=== PATIENT | female | born 1985 | race Caucasian/White ===

== ENCOUNTER → 2017-09-04 | Outpatient (CLI) | payer OTHER ==
[2017-09-04 14:14] LABS: BASOPHILS # (AUTO) 0.1 X10^3/uL (0.0-0.1); BASOPHILS % (AUTO) 0.5 % (0.2-1.0); EOSINOPHILS # (AUTO) 0.1 x10^3/uL (0.0-0.2); EOSINOPHILS % (AUTO) 0.5 % (0.9-2.9); HEMATOCRIT 32.5 % (36.0-47.0); HEMOGLOBIN 11.3 g/dL (12.0-16.0); LYMPHOCYTES % (AUTO) 18.1 % (21.0-51.0); MEAN CORPUSCULAR HEMOGLOBIN 29.2 pg (27.0-34.0); MEAN CORPUSCULAR HGB CONC 34.8 g/dL (33.0-35.0); MEAN CORPUSCULAR VOLUME 83.8 fL (80.0-100.0); MEAN PLATELET VOLUME 8.1 fL (7.4-11.0); MONOCYTES # (AUTO) 0.8 x10^3/uL (0.3-0.8); MONOCYTES % (AUTO) 7.2 % (0.0-13.0); NEUTROPHILS # (AUTO) 8.1 x10^3/uL (2.2-4.8); NEUTROPHILS % (AUTO) 73.7 % (42.0-75.0); PLATELET COUNT 216 X10^3/uL (150.0-450.0); RED BLOOD COUNT 3.88 X10^6/uL (3.5-5.4); RED CELL DISTRIBUTION WIDTH 14.6 % (11.6-16.5); WHITE BLOOD COUNT 10.9 X10^3/uL (3.6-10.0)
[2017-09-04 14:16] LABS: BILIRUBIN,URINE NEGATIVE (NEGATIVE); BLOOD/HEMOGLOBIN,URINE NEGATIVE (NEGATIVE); GLUCOSE, URINE NEGATIVE (NEGATIVE); KETONES,URINE NEGATIVE (NEGATIVE); LEUKOCYTE ESTERASE ,URINE 1+ (NEGATIVE); NITRITES,URINE NEGATIVE (NEGATIVE); PROTEIN,URINE NEGATIVE (NEGATIVE); UROBILINOGEN,URINE NORMAL (NORMAL)
[2017-09-04 14:21] LABS: APPEARANCE,URINE CLEAR (CLEAR); COLOR,URINE YELLOW (YELLOW)
[2017-09-04 14:25] LABS: BLOOD UREA NITROGEN 9 mg/dL (7-18); CALCIUM 7.9 mg/dL (8.5-10.1); CARBON DIOXIDE 21.2 mmol/L (21-32); CHLORIDE 103 mmol/L (98-107); COR NA(FOR HYPERGLY) 136 mmol/L (136-145); CREATININE 0.73 mg/dL (0.55-1.02); SODIUM 135 mmol/L (136-145); eGFR BLACK RACES > 60 (>60); eGFR NON BLACK RACES > 60 (>60)
[2017-09-04 15:00] LABS: BACTERIA,URINE TRACE /HPF (NEGATIVE); RBC,URINE 0-2 /HPF (NONE SEEN); SQUAMOUS EPITHELIAL CELL,UR MANY /HPF (NEGATIVE)
[2017-09-04 15:01] LABS: AMORPHOUS SEDIMENT,UR 1+ /HPF (NEGATIVE); RENAL EPITHELIAL CELLS,URINE RARE /HPF (NEGATIVE)
== END ==
LOC: LAB 13:42
PROVIDERS: ATTEND Specialist
DX: Z01.818 Encounter for other preprocedural examination (principal); Z34.83 Encounter for supervision of other normal pregnancy, third trimester
CPT/HCPCS: 36415; 80048; 80307; 81001; 85025; 86592; 86850; 86900; 86901; G0434

== ENCOUNTER 2017-09-05 06:24 | Inpatient (IN) | payer OTHER ==
[~2017-09-05 06:24] MED LIST: D5 1/2 NS 1L W PITOCIN 20 UNITS/L 20 UNITS/1,000 ML BAG IV ONE; D5LR 1L W PITOCIN 10 UNITS/L 10 UNITS/1,000 ML BAG IV ONE; FENTANYL INJ 100 mcg ONE; LR 1000 ML IV 1,000 ML IV ONE; NAROPIN EPIDURAL 0.2% + FENTANYL 90MCG 60 ML EPI ONE; PITOCIN ONE
[2017-09-05] MEDS ORDERED: D5LR 1L W PITOCIN 10 UNITS/L 10 UNITS/1,000 ML BAG IV PRN (06:27)
[2017-09-05] MEDS ORDERED: D5 1/2 NS 1000 ML 1,000 ML IV SCH (06:27)
[2017-09-05] MEDS ORDERED: REGLAN INJ 10 MG VIAL IVP PRN ×4 (06:27→17:41)
[2017-09-05] MEDS ORDERED: PHENERGAN INJ 25 MG IV PRN ×2 (06:27→17:41)
[2017-09-05] MEDS ORDERED: PITOCIN IVP ONE (06:27)
[2017-09-05] MEDS ORDERED: MORPHINE SULFATE INJ 2 MG INJ IVP PRN (06:27)
[2017-09-05] MEDS ORDERED: NUBAIN INJ 200 MG VIAL MULTIDOSE IVP PRN (06:27)
--- NOTE | 2017-09-05 07:05 | DR.OB ---
OB Quick Note - Assessment/Plan Assessment/Plan: L&D 09/05/17 at 7:00am S-No complaint. O-Afebrile, VSS MCL=315 with good LTV, +accel, no decel. CTX=mild,irreg. CVX=2cm/50%/-1/VTX AROM with clear fluid. IUPC and FSE placed. A-IUP at 39 2/7 weeks for induction P-Begin pitocin induction Anticipate .
[2017-09-05] MEDS ORDERED: FENTANYL INJ 100 mcg EPI ONE (10:29)
[2017-09-05] MEDS ORDERED: LR 1000 ML IV 1,000 ML IV ONE ×2 (10:29→16:30)
[2017-09-05] MEDS ORDERED: DIPRIVAN VIAL ONE (10:43)
[2017-09-05] MEDS ORDERED: ZOFRAN INJ 4 MG VIAL ONE ×2 (10:43→17:23)
[2017-09-05] MEDS ORDERED: XYLOCAINE 2 % (PLAIN) ONE (10:43)
[2017-09-05] MEDS ORDERED: XYLOCAINE 1 % (PLAIN) ONE (10:50)
[2017-09-05] MEDS ORDERED: NAROPIN EPIDURAL 0.2% 60 ML with FENTANYL INJ 100 mcg 90 MCG IVP SCH ×2 (11:00)
[2017-09-05] MEDS ORDERED: ANCEF 1 GM IV PREMIX* 1 GM/50 ML BAG IV ONE (11:29)
[2017-09-05] MEDS ORDERED: NS 1000 ML 1,000 ML ONE (12:01)
[2017-09-05] MEDS ORDERED: NS 1000 ML 1,000 ML IV ONE (12:21)
--- NOTE | 2017-09-05 12:30 | DR.OB ---
OB Quick Note - Assessment/Plan Assessment/Plan: L&D 09/05/17 at 12:05pm Pitocin=6mu/min. S-No complaint. s/p epidural. Episode of prolonged late decel x 7 min. that resolved. s/p epidural. O-Afebrile,VSS UIG=401 with good LTV, +accel, mild variables. Occ. late decel--mild. CTX=q 2-4 min., about 45-70mmHg CVX=3cm/50%/-1/VTX A-IUP at 39 2/7 weeks for induction P-Cont. pitocin induction Anticipate
[2017-09-05] MEDS ORDERED: D5 1/2 NS 1000 ML 1,000 ML IV ONE (15:30)
[2017-09-05] MEDS ORDERED: MARCAINE 0.25% INJ ONE (16:17)
[2017-09-05] MEDS ORDERED: NS IRRIGATION 1000 ML 1,000 ML IR ONE (16:41)
[2017-09-05] MEDS ORDERED: DURAMORPH ONE (16:47)
[2017-09-05] MEDS ORDERED: PHENERGAN INJ 25 MG IVP PRN (17:20)
[2017-09-05] MEDS ORDERED: ZOFRAN INJ 4 MG VIAL IVP PRN ×2 (17:20→17:41)
[2017-09-05] MEDS ORDERED: BENADRYL INJ 50 MG VIAL IVP PRN ×2 (17:20→17:41)
[2017-09-05] MEDS ORDERED: REGLAN INJ 10 MG VIAL ONE (17:38)
[2017-09-05] MEDS ORDERED: NARCAN INJ IVP PRN (17:41)
[2017-09-05] MEDS ORDERED: PERCOCET TAB 5/325 MG PO PRN (17:41)
[2017-09-05] MEDS ORDERED: ADACEL TDaP IM ONE ×2 (17:41→22:00)
[2017-09-05] MEDS ORDERED: MYLICON TAB 80 MG CHEW PO PRN (17:41)
[2017-09-05] MEDS ORDERED: TORADOL 30 MG VIAL IVP PRN (17:41)
[2017-09-05] MEDS ORDERED: D5 1/2 NS 1000 ML 1,000 ML with PITOCIN 20 UNITS IV SCH ×2 (18:00)
[2017-09-05] MEDS: ZANTAC PO SCH (21:21)
[2017-09-06 05:59] LABS: HEMATOCRIT 27.6 % (36.0-47.0); HEMOGLOBIN 9.5 g/dL (12.0-16.0)
[2017-09-06] MEDS ORDERED: PERCOCET TAB 5/325 MG PO PRN (07:12)
[2017-09-06] MEDS: ZANTAC PO SCH ×2 (08:25→20:48)
[2017-09-06] MEDS: PRENATAL PLUS PO SCH (08:25)
[2017-09-06] MEDS: COLACE CAP 100 MG PO SCH ×2 (08:25→20:48)
[2017-09-06] MEDS: BACTROBAN OINT TOP SCH ×2 (13:08→22:52)
[2017-09-06] MEDS: MOTRIN TAB 800 MG PO PRN (15:15)
[2017-09-07] MEDS: BACTROBAN OINT TOP SCH (05:06)
[2017-09-07] MEDS: PRENATAL PLUS PO SCH (08:19)
[2017-09-07] MEDS: ZANTAC PO SCH (08:19)
[2017-09-07] MEDS: COLACE CAP 100 MG PO SCH (08:19)
[2017-09-07 11:38] VITALS: BP 104/60
[2017-09-07] MEDS: MOTRIN TAB 800 MG PO PRN (12:18)
== END 2017-09-07 13:30 | disposition home or self-care (01) | DRG 775 ==
LOC: LD 06:24 → MED/SURG 18:12
PROVIDERS: ADMIT Specialist; ATTEND Specialist
PROC: 3E0234Z Introduction of Serum, Toxoid and Vaccine into Muscle, Percutaneous Approach (ICD-10-PCS; 2017-09-05)
PROC: 10D00Z1 Extraction of Products of Conception, Low, Open Approach (ICD-10-PCS; principal; 2017-09-05 16:00)
DX: O77.8 Labor and delivery complicated by other evidence of fetal stress (principal); Z37.0 Single live birth; O61.8 Other failed induction of labor; O62.0 Primary inadequate contractions; Z3A.39 39 weeks gestation of pregnancy; Z23 Encounter for immunization
CPT/HCPCS: 36415; 85014; 85018; A4216; A4222; S0020; S0197; J0690; J2001; J2405; J2590; J2765; J3010; J3490; J7042; J7120

== ENCOUNTER 2020-10-30 15:35 | Inpatient (IN) ==
[2020-10-30 15:45] VITALS: BMI 33.3
[2020-10-30] MEDS ORDERED: NS 1000 ML 1,000 ML IV STA (16:15)
--- NOTE | 2020-10-30 16:15 | DR.GENAD ---
HPI Time Seen Time Seen by Provider: 10/30/20 16:00 PCP Primary Care Physician: BERTRAND HPI Comment HPI Comment: PATIENT WITH A HISTORY OF ENDOMETROSIS, COMPLAINS OF DAILY VAGINAL BLEEDING FOR 2 MONTHS, DENIES ABDOMINAL PAIN, HAS OCCASIONAL WEAKNESS AND DIZZINESS UPON STANDING. HAS BEEN EVALUATED BY 2 SEPARATE [employer]UX SECURITY ADMINISTRATOR OVER THE PAST MONTH WITH RECOMMENDATIONS OF HYSTERECTOMY OR HORMONAL THERAPY. Complaint/Symptoms Chief Complaint Doctors Comments: VAGINAL BLEEDING Chief Complaint:: PT. STATES SHE HAS HAD VAGINAL BLEEDING X 2 MONTHS. BLEEDING INCREASED OVER NIGHT. PT. IS SCHEDULED TO SEE ANNUAL GIVING DIRECTOR IN NOVEMBER. PT. C/O HEADACHE, FATIGUE, PALE TOUNGE AND VITAMIN DEFICIENCY. 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 Past Surgical History: Yes Surgical History: and Thyroidectomy Family History History of Family Medical Conditions: Yes Family Medical History: Diabetes Mellitus and Hypertension Social History Does patient currently use any type of tobacco product: No Have you used tobacco products in the last 12 months: No Type of Tobacco Use: None Does any household member use tobacco: No Alcohol Use: None Do you use any recreational Drugs:: No Lives With: Family Lives Where: Home Travel Risk Coronavirus risk:travel/contact w/high risk person: No Has patient experienced Coronavirus symptoms: No Infectious screening In the last 2 months have you had wt loss of >10#?: NO Have you had fever, night sweats or hemotysis?: No Have you traveled outside the country in the last 6 months?: No Isolation: Standard ROS Review of Systems Constitutional: See HPI and Weakness Eyes: No Symptoms Reported ENTM: No Symptoms Reported Respiratoy: No Symptoms Reported Cardiovascular: No Symptoms Reported Gastrointestinal/Abdominal: No Symptoms Reported Genitourinary: Bleeding (VAGINAL BLEEDING FOR 2 MONTHS) Neurological: No Symptoms Reported Musculoskeletal: No Symptoms Reported Integumentary: No Symptoms Reported Hematologic/Lymphatic: No Symptoms Reported Endocrine: No Symptoms Reported Psychiatric: No Symptoms Reported All Other Systems: Reviewed and Negative PE Vital Signs Vitals: Temperature 98.5 F Pulse Rate [Standing] 104 Pulse Rate [Sitting] 102 Pulse Rate [Lying] 98 Pulse Rate 93 Respiratory Rate 18 Blood Pressure [Left Arm] 106/64 Blood Pressure [Standing] 115/59 Blood Pressure [Sitting] 119/63 Blood Pressure [Lying] 120/64 Blood Pressure 102/56 O2 Sat by Pulse Oximetry 100 General Limitations: Physical Limitation General Appearance: Alert and In No Apparent Distress Head Head Exam: Normal Inspection, Atraumatic and Normocephalic Eyes Eye exam: Normal Appearance, PERRL and EOMI ENT ENT Exam: Normal Exam, Normal Oropharynx and Normal External Ear Exam External Ear Exam: Normal External Inspection TM/Canal Exam: Bilateral: Normal Throat Exam: Normal Inspection Neck Neck Exam: Normal Inspection, Full ROM and Trachea Midline Chest Chest Inspection: Normal Inspection and Symmetric Chest Wall Rise Respiratory Respiratory Exam: Bilateral: Clear to Auscultation Cardiovascular Cardiovascular Exam: Normal Rhythm, Tachycardia and Normal Heart Sounds Abdominal Exam Abdominal Exam: Normal Inspection, Normal Bowel Sounds and Soft Abdominal Tenderness: Other (NO ABDOMINAL TENDERNESS) Extremities Extremities Exam: Normal Inspection and Full ROM Back Back Exam: Normal Inspection and Full ROM Neurologic Neurological Exam: Alert, Oriented X3 and CN II-XII Intact Psychiatric Psychiatric Exam: Normal Affect and Normal Mood Skin Skin Exam: Warm and Dry MDM Differential Diagnosis Differential Diagnosis: DYSFUNCTIONAL UTERINE BLEEDING, FIBROID TUMORS COURSE Treatment Treatment: IV NORMAL SALINE 500ML/HR, PATIENT TYPED AND CROSSED FOR 4 UNITS PRBC, TRANSFUSE 2 UNITS WHEN AVAILABLE Consultation Call Returned: 17:26 Consultation Comments: DISCUSSED FINDINGS WITH DR THURSTON FOR ADMIT INPATIENT ROR Labs Reviewed Laboratory Results Reviewed?: Yes Result Diagrams: 10/30/20 16:29 10/30/20 16:29 Laboratory: WBC 6.4 X10^3/uL (3.6-10.0) 10/30/20 16:29 RBC 2.23 X10^6/uL (3.5-5.4) L 10/30/20 16:29 Hgb 5.3 g/dL (12.0-16.0) L* 10/30/20 16:29 Hct 16.6 % (36.0-47.0) L* 10/30/20 16:29 MCV 74.3 fL (80.0-100.0) L 10/30/20 16:29 MCH 23.9 pg (27.0-34.0) L 10/30/20 16: MCHC 32.1 g/dL (33.0-35.0) L 10/30/20 16: RDW 17.4 % (11.6-16.5) H 10/30/20 16: Plt Count 341 X10^3/uL (150.0-450.0) 10/30/20 16: Plt Count Comment Adequate (ADEQUATE) 10/30/20 16: MPV 6.7 fL (7.4-11.0) L 10/30/20 16: Neut % (Auto) 62.7 % (42.0-75.0) 10/30/20 16: Lymph % (Auto) 25.5 % (21.0-51.0) 10/30/20 16: [place] % (Auto) 8.0 % (0.0-13.0) 10/30/20 16: Eos % (Auto) 3.1 % (0.9-2.9) H 10/30/20 16: Baso % (Auto) 0.7 % (0.2-1.0) 10/30/20 16: Neut # (Auto) 4.0 x10^3/uL (2.2-4.8) 10/30/20 16: Lymph # (Auto) 1.6 X10^3/uL (1.3-2.9) 10/30/20 16:29 [place] # (Auto) 0.5 x10^3/uL (0.3-0.8) 10/30/20 16: Eos # (Auto) 0.2 x10^3/uL (0.0-0.2) 10/30/20 16: Baso # (Auto) 0.0 X10^3/uL (0.0-0.1) 10/30/20 16: Absolute Nucleated RBC 0.2 /100WBC 10/30/20 16:29 Plt Morphology Comment Normal (NORMAL) 10/30/20 16: RBC Morphology Abnormal (NORMAL) A 10/30/20 16:29 Polychromasia 2+ 10/30/20 16:29 Anisocytosis 2+ A 10/30/20 16:29 PT 14.1 SECONDS (11.8-14.3) 10/30/20 16:29 INR Target Range - 10/30/20 16:29 INR 1.14 (0.8-1.3) 10/30/20 16:29 Sodium 144 mmol/L (136-145) 10/30/20 16:29 Corrected Sodium 144 mmol/L (136-145) 10/30/20 16:29 Potassium 4.0 mmol/L (3.5-5.1) 10/30/20 16:29 Chloride 108 mmol/L (98-107) H 10/30/20 16:29 Carbon Dioxide 25.1 mmol/L (21-32) 10/30/20 16:29 BUN 9 mg/dL (7-18) 10/30/20 16:29 Creatinine 0.74 mg/dL (0.55-1.02) 10/30/20 16:29 Est GFR (MDRD) Af Amer > 60 (>60) 10/30/20 16:29 Est GFR (MDRD) Non-Af > 60 (>60) 10/30/20 16:29 Glucose 119 mg/dL (65-99) H 10/30/20 16:29 Calcium 8.3 mg/dL (8.5-10.1) L 10/30/20 16:29 Corrected Calcium TNP 10/30/20 16:29 Magnesium 1.7 mg/dL (1.7-2.9) 10/30/20 16:29 Total Bilirubin 0.20 mg/dL (0.2-1.0) 10/30/20 16:29 AST 13 Units/L (15-37) L 10/30/20 16:29 ALT 19 Units/L (12-78) 10/30/20 16:29 Alkaline Phosphatase 48 Units/L (46-116) 10/30/20 16:29 Total Protein 6.7 g/dL (6.4-8.2) 10/30/20 16:29 Albumin 3.5 g/dL (3.4-5.0) 10/30/20 16:29 Globulin 3.2 g/dL (2.5-4.5) 10/30/20 16:29 Albumin/Globulin Ratio 1.1 Ratio (1.1-2.1) 10/30/20 16:29 HCG, Qual Negative <10 mIU/mL 10/30/20 16:29 Specimen Type Clean catch urine 10/30/20 16: Urine Color Yellow (YELLOW) 10/30/20 16: Urine Appearance Cloudy (CLEAR) 10/30/20 16: Urine pH 8.0 (5.0 - 8.0) 10/30/20 16:29 Ur Specific [place] 1.020 (1.000-1.030) 10/30/20 16: Urine Protein Negative (NEGATIVE) 10/30/20 16: Urine Glucose (UA) Negative (NEGATIVE) 10/30/20 16: Urine Ketones Negative (NEGATIVE) 10/30/20 16: Urine Occult Blood 4+ (NEGATIVE) 10/30/20 16: Urine Nitrite Negative (NEGATIVE) 10/30/20 16: Urine Bilirubin Negative (NEGATIVE) 10/30/20 16: Urine Urobilinogen Normal (NORMAL) 10/30/20 16:29 Ur Leukocyte Esterase Negative (NEGATIVE) 10/30/20 16: Urine RBC 10-20 /HPF (0-3) A 10/30/20 16:29 Urine WBC 0-2 /HPF (0-5) 10/30/20 16:29 Ur Squamous Epith Cells Few /HPF (NEGATIVE) 10/30/20 16: Amorphous Sediment 2+ /HPF (NEGATIVE) 10/30/20 16: Urine Bacteria Trace /HPF (NEGATIVE) 10/30/20 16: Urine Mucus Few /HPF (NEGATIVE) 10/30/20 16:29 Ur Culture Indicated? No/not indicated 10/30/20 16: SARS CoV-2 RNA Rapid BRIAN Negative (NEGATIVE) 10/30/20 17:06 EKG Rate: 92 [place]: Normal Rhythm: ST ST: Ant (ANTERIOR SEPTAL LATERAL T-WAVE CHANGES) Opioid Opioid Risk Tool Age (Adria box if 16-45): Yes History of Preadolescent Sexual Abuse: No Total: 1 Total Score Risk Category: Low Risk Copyright: Jaswinder FULLER predicting aberrant behaviors Diagnosis Discharge Problem: Abnormal vaginal bleeding, Symptomatic anemia
[2020-10-30] MEDS ORDERED: NS 1000 ML 1,000 ML ONE ×2 (16:23→19:18)
[2020-10-30 16:26] LABS: BILIRUBIN,URINE NEGATIVE (NEGATIVE); BLOOD/HEMOGLOBIN,URINE 4+ (NEGATIVE); GLUCOSE, URINE NEGATIVE (NEGATIVE); KETONES,URINE NEGATIVE (NEGATIVE); LEUKOCYTE ESTERASE ,URINE NEGATIVE (NEGATIVE); NITRITES,URINE NEGATIVE (NEGATIVE); PROTEIN,URINE NEGATIVE (NEGATIVE); UROBILINOGEN,URINE NORMAL (NORMAL)
[2020-10-30 16:36] LABS: APPEARANCE,URINE CLOUDY (CLEAR); COLOR,URINE YELLOW (YELLOW)
[2020-10-30 16:37] LABS: AMORPHOUS SEDIMENT,UR 2+ /HPF (NEGATIVE); BACTERIA,URINE TRACE /HPF (NEGATIVE); BASOPHILS % (AUTO) 0.7 % (0.2-1.0); EOSINOPHILS # (AUTO) 0.2 x10^3/uL (0.0-0.2); EOSINOPHILS % (AUTO) 3.1 % (0.9-2.9); LYMPHOCYTES # (AUTO) 1.6 X10^3/uL (1.3-2.9); LYMPHOCYTES % (AUTO) 25.5 % (21.0-51.0); MEAN CORPUSCULAR HEMOGLOBIN 23.9 pg (27.0-34.0); MEAN CORPUSCULAR HGB CONC 32.1 g/dL (33.0-35.0); MEAN CORPUSCULAR VOLUME 74.3 fL (80.0-100.0); MEAN PLATELET VOLUME 6.7 fL (7.4-11.0); MONOCYTES # (AUTO) 0.5 x10^3/uL (0.3-0.8); MUCUS,URINE FEW /HPF (NEGATIVE); NEUTROPHILS % (AUTO) 62.7 % (42.0-75.0); PLATELET COUNT 341 X10^3/uL (150.0-450.0); RED BLOOD COUNT 2.23 X10^6/uL (3.5-5.4); RED CELL DISTRIBUTION WIDTH 17.4 % (11.6-16.5); SQUAMOUS EPITHELIAL CELL,UR FEW /HPF (NEGATIVE); WHITE BLOOD COUNT 6.4 X10^3/uL (3.6-10.0)
[2020-10-30 16:45] LABS: HEMATOCRIT 16.6 % (36.0-47.0); HEMOGLOBIN 5.3 g/dL (12.0-16.0)
[2020-10-30 16:49] LABS: ALANINE AMINOTRANSFERASE 19 Units/L (12-78); ALBUMIN 3.5 g/dL (3.4-5.0); ALKALINE PHOSPHATASE 48 Units/L (46-116); ASPARTATE AMINO TRANSFERASE 13 Units/L (15-37); BLOOD UREA NITROGEN 9 mg/dL (7-18); CALCIUM 8.3 mg/dL (8.5-10.1); CARBON DIOXIDE 25.1 mmol/L (21-32); CHLORIDE 108 mmol/L (98-107); COR NA(FOR HYPERGLY) 144 mmol/L (136-145); CREATININE 0.74 mg/dL (0.55-1.02); MAGNESIUM 1.7 mg/dL (1.7-2.9); SODIUM 144 mmol/L (136-145); TOTAL PROTEIN 6.7 g/dL (6.4-8.2); eGFR NON BLACK RACES > 60 (>60)
[2020-10-30 16:55] LABS: SERUM PREGNANCY TEST, QUAL NEGATIVE <10 mIU/mL
[2020-10-30 17:00] LABS: ANISOCYTOSIS 2+; PLATELET MORPHOLOGY COMMENT NORMAL (NORMAL); POLYCHROMASIA 2+
[2020-10-30] MEDS ORDERED: ZOFRAN INJ 4 MG VIAL IVP PRN (17:48)
[2020-10-30] MEDS ORDERED: TYLENOL 325 MG TAB PO PRN (17:48)
[2020-10-30] MEDS: NS 1000 ML 1,000 ML IV SCH (19:31)
[2020-10-30] MEDS ORDERED: BENADRYL INJ 50 MG VIAL IVP STA (20:32)
[2020-10-30] MEDS ORDERED: NS 250 ML IV 250 ML IV ONE (20:56)
[2020-10-31] MEDS ORDERED: NS 250 ML IV 250 ML IV ONE (02:53)
[2020-10-31 07:08] LABS: BASOPHILS % (AUTO) 0.7 % (0.2-1.0); EOSINOPHILS # (AUTO) 0.3 x10^3/uL (0.0-0.2); EOSINOPHILS % (AUTO) 4.7 % (0.9-2.9); HEMATOCRIT 25.4 % (36.0-47.0); HEMOGLOBIN 8.3 g/dL (12.0-16.0); LYMPHOCYTES # (AUTO) 1.7 X10^3/uL (1.3-2.9); LYMPHOCYTES % (AUTO) 29.2 % (21.0-51.0); MEAN CORPUSCULAR HEMOGLOBIN 25.9 pg (27.0-34.0); MEAN CORPUSCULAR HGB CONC 32.6 g/dL (33.0-35.0); MEAN CORPUSCULAR VOLUME 79.4 fL (80.0-100.0); MONOCYTES # (AUTO) 0.5 x10^3/uL (0.3-0.8); MONOCYTES % (AUTO) 9.6 % (0.0-13.0); NEUTROPHILS # (AUTO) 3.2 x10^3/uL (2.2-4.8); NEUTROPHILS % (AUTO) 55.8 % (42.0-75.0); PLATELET COUNT 279 X10^3/uL (150.0-450.0); RED BLOOD COUNT 3.19 X10^6/uL (3.5-5.4); RED CELL DISTRIBUTION WIDTH 18.6 % (11.6-16.5); WHITE BLOOD COUNT 5.7 X10^3/uL (3.6-10.0)
[2020-10-31 07:20] LABS: ALANINE AMINOTRANSFERASE 15 Units/L (12-78); ALBUMIN 2.9 g/dL (3.4-5.0); ALKALINE PHOSPHATASE 39 Units/L (46-116); ASPARTATE AMINO TRANSFERASE 10 Units/L (15-37); BLOOD UREA NITROGEN 11 mg/dL (7-18); CALCIUM 7.7 mg/dL (8.5-10.1); CARBON DIOXIDE 24.8 mmol/L (21-32); CHLORIDE 113 mmol/L (98-107); COR CA(FOR HYPOALB) 8.6 mg/dL (8.5-10.1); CREATININE 0.74 mg/dL (0.55-1.02); SODIUM 146 mmol/L (136-145); TOTAL PROTEIN 5.5 g/dL (6.4-8.2); eGFR NON BLACK RACES > 60 (>60)
[2020-10-31] MEDS ORDERED: SYNTHROID 137 mcg TAB PO SCH (09:00)
--- NOTE | 2020-10-31 12:46 | DR.SSS ---
SHORT STAY SUMMARY Admission Date Date of Admission: 10/30/20 Discharge Date Discharge Date: 10/31/20 Admission Diagnoses Admission Diagnoses: Symptomatic anemia Discharge Diagnoses Discharge Diagnoses: Symptomatic anemia Dysfunctional uterine bleeding Endometriosis Chief Complaint Chief Complaint: Dizziness Lightheaded History of Present Illness History of Present Illness: Pt is a 35 year old female presenting with worsening fatigue, dizziness, and feeling lightheaded for the past week. She reports a history of heavy menstrual bleeding and for the past week has had large amounts of bleeding with clots. She has seen [facility] CALL in the past and was recommended she have hormonal treatment or hysterectomy. Past Surgical History Surgical History: and Thyroidectomy Allergies Allergies Allergy/AdvReac Type Severity Reaction Status Date / Time No Known Drug Allergies Allergy Verified 10/30/20 15:45 Medications Home Medications: No Known Drug Allergies Allergy (Verified 10/30/20 15:45) CONTINUE taking the following medications levothyroxine 137 mcg PO DAILY 10/30/20 [History] Family History Family Medical History: Diabetes Mellitus and Hypertension Social History Does patient currently use any type of tobacco product: No Have you used tobacco products in the last 12 months: No Type of Tobacco Use: None Does any household member use tobacco: No Alcohol Use: Rarely Drug Use: None Review of Systems Constitutional: Weakness; denies Fever and Chills Eyes: No Symptoms Reported ENT: No Symptoms Reported Respiratory: No Symptoms Reported Cardiovascular: No Symptoms Reported Gastrointestinal: No Symptoms Reported Genitourinary: No Symptoms Reported Musculoskeletal: No Symptoms Reported Skin: No Symptoms Reported Neurological: No Symptoms Reported Physical Exam Vital Signs: Last Vital Signs Temp 98.2 F 10/31/20 12:00 Pulse 72 10/31/20 12:00 Resp 18 10/31/20 12:00 BP 114/75 10/31/20 12:00 Pulse Ox 100 10/31/20 12:00 Oriented: Normal Eyes: Normal Ear: Normal Nose: Normal Throat: Normal Respiratory: Clear Throughout Cardiovascular: Normal : Normal Auscultation: Bowel Sounds: Normal Palpation: Normal Tenderness: Normal Skin: Normal Musculoskeletal: Normal Psychiatric: Normal Mood Description: Calm Speech Pattern: Clear Labs Labs: Laboratory Last Values WBC 5.7 X10^3/uL (3.6-10.0) 10/31/20 06:43 RBC 3.19 X10^6/uL (3.5-5.4) L 10/31/20 06:43 Hgb 8.3 g/dL (12.0-16.0) L D 10/31/20 06:43 Hct 25.4 % (36.0-47.0) L 10/31/20 06:43 MCV 79.4 fL (80.0-100.0) L 10/31/20 06:43 MCH 25.9 pg (27.0-34.0) L 10/31/20 06:43 MCHC 32.6 g/dL (33.0-35.0) L 10/31/20 06:43 RDW 18.6 % (11.6-16.5) H 10/31/20 06:43 Plt Count 279 X10^3/uL (150.0-450.0) 10/31/20 06:43 Plt Count Comment Adequate (ADEQUATE) 10/30/20 16:29 MPV 7.0 fL (7.4-11.0) L 10/31/20 06:43 Neut % (Auto) 55.8 % (42.0-75.0) 10/31/20 06:43 Lymph % (Auto) 29.2 % (21.0-51.0) 10/31/20 06:43 [place] % (Auto) 9.6 % (0.0-13.0) 10/31/20 06:43 Eos % (Auto) 4.7 % (0.9-2.9) H 10/31/20 06:43 Baso % (Auto) 0.7 % (0.2-1.0) 10/31/20 06:43 Neut # (Auto) 3.2 x10^3/uL (2.2-4.8) 10/31/20 06:43 Lymph # (Auto) 1.7 X10^3/uL (1.3-2.9) 10/31/20 06:43 [place] # (Auto) 0.5 x10^3/uL (0.3-0.8) 10/31/20 06:43 Eos # (Auto) 0.3 x10^3/uL (0.0-0.2) H 10/31/20 06:43 Baso # (Auto) 0.0 X10^3/uL (0.0-0.1) 10/31/20 06:43 Absolute Nucleated RBC 0.2 /100WBC 10/31/20 06:43 Plt Morphology Comment Normal (NORMAL) 10/30/20 16:29 RBC Morphology Abnormal (NORMAL) A 10/30/20 16:29 Polychromasia 2+ 10/30/20 16:29 Anisocytosis 2+ A 10/30/20 16:29 PT 14.1 SECONDS (11.8-14.3) 10/30/20 16:29 INR Target Range - 10/30/20 16:29 INR 1.14 (0.8-1.3) 10/30/20 16:29 Sodium 146 mmol/L (136-145) H 10/31/20 06:43 Corrected Sodium TNP 10/31/20 06:43 Potassium 4.1 mmol/L (3.5-5.1) 10/31/20 06:43 Chloride 113 mmol/L (98-107) H 10/31/20 06:43 Carbon Dioxide 24.8 mmol/L (21-32) 10/31/20 06:43 BUN 11 mg/dL (7-18) 10/31/20 06:43 Creatinine 0.74 mg/dL (0.55-1.02) 10/31/20 06:43 Est GFR (MDRD) Af Amer > 60 (>60) 10/31/20 06:43 Est GFR (MDRD) Non-Af > 60 (>60) 10/31/20 06:43 Glucose 95 mg/dL (65-99) 10/31/20 06:43 Calcium 7.7 mg/dL (8.5-10.1) L 10/31/20 06:43 Corrected Calcium 8.6 mg/dL (8.5-10.1) 10/31/20 06:43 Magnesium 1.7 mg/dL (1.7-2.9) 10/30/20 16:29 Total Bilirubin 0.80 mg/dL (0.2-1.0) 10/31/20 06:43 AST 10 Units/L (15-37) L 10/31/20 06:43 ALT 15 Units/L (12-78) 10/31/20 06:43 Alkaline Phosphatase 39 Units/L (46-116) L 10/31/20 06:43 Total Protein 5.5 g/dL (6.4-8.2) L 10/31/20 06:43 Albumin 2.9 g/dL (3.4-5.0) L 10/31/20 06:43 Globulin 2.6 g/dL (2.5-4.5) 10/31/20 06:43 Albumin/Globulin Ratio 1.1 Ratio (1.1-2.1) 10/31/20 06:43 HCG, Qual Negative <10 mIU/mL 10/30/20 16:29 Specimen Type Clean catch urine 10/30/20 16:29 Urine Color Yellow (YELLOW) 10/30/20 16: Urine Appearance Cloudy (CLEAR) 10/30/20 16: Urine pH 8.0 (5.0 - 8.0) 10/30/20 16: Ur Specific [place] 1.020 (1.000-1.030) 10/30/20 16:29 Urine Protein Negative (NEGATIVE) 10/30/20 16:29 Urine Glucose (UA) Negative (NEGATIVE) 10/30/20 16: Urine Ketones Negative (NEGATIVE) 10/30/20 16:29 Urine Occult Blood 4+ (NEGATIVE) 10/30/20 16:29 Urine Nitrite Negative (NEGATIVE) 10/30/20 16: Urine Bilirubin Negative (NEGATIVE) 10/30/20 16:29 Urine Urobilinogen Normal (NORMAL) 10/30/20 16:29 Ur Leukocyte Esterase Negative (NEGATIVE) 10/30/20 16:29 Urine RBC 10-20 /HPF (0-3) A 10/30/20 16:29 Urine WBC 0-2 /HPF (0-5) 10/30/20 16:29 Ur Squamous Epith Cells Few /HPF (NEGATIVE) 10/30/20 16:29 Amorphous Sediment 2+ /HPF (NEGATIVE) 10/30/20 16:29 Urine Bacteria Trace /HPF (NEGATIVE) 10/30/20 16:29 Urine Mucus Few /HPF (NEGATIVE) 10/30/20 16:29 Ur Culture Indicated? No/not indicated 10/30/20 16:29 SARS CoV-2 RNA Rapid BRIAN Negative (NEGATIVE) 10/30/20 17:06 Blood Type AB POSITIVE 10/30/20 16:57 Antibody Screen Negative 10/30/20 16:57 Crossmatch See Detail 10/30/20 16:57 Assessment/Plan (1) Abnormal vaginal bleeding: (2) Symptomatic anemia: Hospital Course Hospital Course: Pt is a 35 year old female past medical history of endometriosis presenting with worsening fatigue, dizziness, and feeling lightheaded for the past week. She reports a history of heavy menstrual bleeding, including for the past month, and for the past week has had large amounts of bleeding with clots. She has seen [facility] CALL in the past and was recommended she have hormonal treatment or hysterectomy, which at the time she declined and is scheduled to see another provider in [place] in November but no definite appointment has been made. She has seen Dr Trotter in the past and was consulted, recommends hormonal treatment or hysterectomy, if patient chooses can follow up with her outpatient. On admission, patient's hemoglobin was found to be 5.3, she was transfused 4 units of packed red blood cells, hemoglobin as responded appropriately and has stabilized. Menstrual bleeding has also slowed down. Pt discharged in stable condition, instructed to follow up with gynecology and pcp in 3-5 days. Discharge Medications Discharge Medications: Home Medication List levothyroxine 137 mcg PO DAILY 10/30/20 [History] Prescriptions: Discharge Disposition Discharge Disposition: Home
[2020-10-31] MEDS ORDERED: NS 100 ML IV 100 ML ONE (16:52)
[2020-10-31] MEDS: NS 1000 ML 1,000 ML IV SCH (18:11)
[2020-10-31 21:11] LABS: HEMATOCRIT 29.2 % (36.0-47.0); HEMOGLOBIN 9.9 g/dL (12.0-16.0)
[2020-10-31 21:22] VITALS: BP 112/70
== END 2020-10-31 21:40 | disposition home or self-care (01) | DRG 761 ==
LOC: ER 15:40 → MED/SURG 17:48
PROVIDERS: ADMIT Internal Medicine; ATTEND Internal Medicine
DX: N93.8 Other specified abnormal uterine and vaginal bleeding; R42 Dizziness and giddiness; Z20.822 Contact with and (suspected) exposure to COVID-19; D64.89 Other specified anemias

== ENCOUNTER 2020-11-28 06:25 | Inpatient (IN) ==
[2020-11-28] MEDS ORDERED: ANCEF 1 GRAM IV PREMIX* 1 G/50 ML BAG IV ONE ×2 (06:36→06:41)
[2020-11-28] MEDS: D5 1/2 NS 1000 ML 1,000 ML IV ONE ×2 (06:36→06:45)
[2020-11-28] MEDS ORDERED: D5 1/2 NS 1000 ML 1,000 ML IV SCH (06:46)
[2020-11-28] MEDS ORDERED: ANCEF VIAL 1 GRAM IVP ONE (06:46)
[2020-11-28] MEDS ORDERED: BETADINE SOLN ONE (06:47)
[2020-11-28 07:03] VITALS: BMI 32.4
[2020-11-28] MEDS ORDERED: FENTANYL INJ 250 mcg ONE (07:11)
[2020-11-28] MEDS ORDERED: BRIDION ONE (07:11)
[2020-11-28] MEDS ORDERED: ProvayBLUE 0.5% ONE (07:12)
[2020-11-28] MEDS ORDERED: NORCURON INJ 10 MG VIAL ONE (07:18)
[2020-11-28] MEDS ORDERED: ZOFRAN INJ 4 MG VIAL ONE (07:18)
[2020-11-28] MEDS ORDERED: DIPRIVAN VIAL ONE (07:18)
[2020-11-28] MEDS ORDERED: QUELICIN (OR ANECTINE) ONE (07:18)
[2020-11-28] MEDS ORDERED: SUPRANE ONE (07:18)
[2020-11-28] MEDS ORDERED: VERSED ONE (07:18)
[2020-11-28] MEDS ORDERED: LR 1000 ML IV 1,000 ML IV ONE (08:46)
[2020-11-28] MEDS ORDERED: BARHEMSYS INJ IVP PRN (09:45)
[2020-11-28] MEDS ORDERED: DILAUDID INJ IVP PRN (09:45)
[2020-11-28] MEDS ORDERED: PHENERGAN INJ 25 MG IM PRN (09:45)
[2020-11-28] MEDS ORDERED: ZOFRAN INJ 4 MG VIAL IVP PRN (09:45)
[2020-11-28] MEDS ORDERED: BENADRYL INJ 50 MG VIAL IVP PRN ×2 (09:45→10:15)
[2020-11-28] MEDS ORDERED: REGLAN INJ 10 MG VIAL IVP PRN (09:45)
[2020-11-28] MEDS ORDERED: MORPHINE SULFATE PCA 30 MG IVP PRN (10:15)
[2020-11-28] MEDS ORDERED: TORADOL 30 MG VIAL IVP PRN (10:15)
[2020-11-28] MEDS: D5 1/2 NS 1000 ML 1,000 ML IV SCH ×2 (11:14→18:52)
[2020-11-28] MEDS: ZOFRAN INJ 4 MG VIAL IVP PRN (13:34)
[2020-11-28 16:16] LABS: HEMATOCRIT 24.5 % (36.0-47.0); HEMOGLOBIN 7.9 g/dL (12.0-16.0)
[2020-11-29] MEDS: ZOFRAN INJ 4 MG VIAL IVP PRN (00:18)
[2020-11-29] MEDS: D5 1/2 NS 1000 ML 1,000 ML IV SCH ×2 (02:49→10:12)
[2020-11-29 05:21] LABS: BASOPHILS % (AUTO) 0.2 % (0.2-1.0); EOSINOPHILS % (AUTO) 0.2 % (0.9-2.9); HEMATOCRIT 24.8 % (36.0-47.0); LYMPHOCYTES # (AUTO) 1.4 X10^3/uL (1.3-2.9); MEAN CORPUSCULAR HEMOGLOBIN 24.7 pg (27.0-34.0); MEAN CORPUSCULAR HGB CONC 32.3 g/dL (33.0-35.0); MEAN CORPUSCULAR VOLUME 76.6 fL (80.0-100.0); MEAN PLATELET VOLUME 7.2 fL (7.4-11.0); MONOCYTES # (AUTO) 0.7 x10^3/uL (0.3-0.8); MONOCYTES % (AUTO) 7.3 % (0.0-13.0); NEUTROPHILS # (AUTO) 7.6 x10^3/uL (2.2-4.8); NEUTROPHILS % (AUTO) 78.3 % (42.0-75.0); PLATELET COUNT 332 X10^3/uL (150.0-450.0); RED BLOOD COUNT 3.24 X10^6/uL (3.5-5.4); RED CELL DISTRIBUTION WIDTH 22.1 % (11.6-16.5); WHITE BLOOD COUNT 9.7 X10^3/uL (3.6-10.0)
[2020-11-29 05:31] LABS: BLOOD UREA NITROGEN 4 mg/dL (7-18); CALCIUM 7.7 mg/dL (8.5-10.1); CARBON DIOXIDE 24.3 mmol/L (21-32); CHLORIDE 108 mmol/L (98-107); COR NA(FOR HYPERGLY) 143 mmol/L (136-145); CREATININE 0.79 mg/dL (0.55-1.02); SODIUM 142 mmol/L (136-145); eGFR NON BLACK RACES > 60 (>60)
[2020-11-29 06:06] LABS: ANISOCYTOSIS 2+; HYPOCHROMASIA SLIGHT; PLATELET MORPHOLOGY COMMENT NORMAL (NORMAL)
[2020-11-29] MEDS ORDERED: SYNTHROID 100 mcg TAB PO SCH (06:30)
[2020-11-29] MEDS ORDERED: MOTRIN TAB 800 MG PO PRN (07:21)
[2020-11-29] MEDS ORDERED: PERCOCET TAB 5/325 MG PO PRN (07:21)
[2020-11-29] MEDS: COLACE CAP 100 MG PO SCH ×2 (10:12→21:26)
[2020-11-29] MEDS: ESTRACE PO SCH (10:12)
[2020-11-29] MEDS ORDERED: SYNTHROID 137 mcg TAB PO ONE (16:05)
[2020-11-29] MEDS ORDERED: SYNTHROID 137 mcg TAB ONE (16:06)
[2020-11-30] MEDS ORDERED: SYNTHROID 137 mcg TAB PO SCH ×2 (06:30)
[2020-11-30] MEDS: ESTRACE PO SCH (09:33)
[2020-11-30] MEDS: COLACE CAP 100 MG PO SCH (09:33)
[2020-11-30 10:35] VITALS: BP 95/53
== END 2020-11-30 11:28 | disposition home or self-care (01) | DRG 743 ==
LOC: MED/SURG 06:25
PROVIDERS: ADMIT Specialist; ATTEND Specialist
DX: N92.5 Other specified irregular menstruation; D50.8 Other iron deficiency anemias